=== PATIENT | male | born 1950 | race Two or more races ===

== ENCOUNTER 2019-01-20 15:58 | Outpatient (AMB) | payer MEDICARE, MEDICAID, SELFPAY ==
[2019-01-20 16:27] VITALS: BP 153/84; PULSE 67; RESP 18; TEMP 37.2; O2SAT 96; BMI 28.0
--- NOTE | 2019-01-20 16:27 | UCVISIT ---
Intake Ht./Wt. Decline/Exclusions Patient Declined Height and Weight this visit: No PT Meets exclusion criteria: Yes Vital Signs 01/20/19 16:27 Height 5 ft 10 in Height Method Measured Weight 88.536 kg Weight Measurement Method Standing Scale BMI 28.0 Temp 98.9 F Temp Source Temporal Artery Scan Pulse 67 Pulse Source Monitor Respiration 18 BP 153/84 H Blood Pressure Source Automatic Cuff Blood Pressure Location Right Upper Arm Position Sitting Pulse Oximetry (%) 96 Oxygen Delivery Method Room Air Intake Visit Reasons: UC Cough Triage Triage Allergy / Med Rec Allergies NKA* Allergy (Uncoded 07/28/16 22:48) Band Placement: Patient Identification NELIDA: [id number] Arrival Mode of Arrival: Private Vehicle Method of Arrival: Ambulatory Accompanied By: Self Prehospital Treatment: NONE PCP or OBGYN visit in last 3 months: Yes Language Preferred Language: Chinese Senior Research Manager Required: No Social History Alcohol / Drugs Hx Alcohol Use: No Hx Substance Use: No Safety Do You Feel Safe at Home: Yes Authorities Contacted: N/A Gallardo Fall Scale Special Populations Patient Comatose, Paralyzed or Immobile: No Patient Under the Age of 44 Years Old: No Assessment History of falling; immediate or within 3 months: No Secondary diagnosis: No Ambulatory aid: None IV Infusion: No Gait/Transferring: Normal/bedrest/immobile Mental Status: Oriented to own ability Score Score: 0 Risk Level/Action Risk Level: Low Risk Action: Good Basic Nursing Care Fall Star Level 1 Fall Star Level 1: Yes Patient Education Topic Education Topics: Discharge Instructions Teaching Recipient: Patient Readiness, Motivation to Learn: Active Methods: Verbal instruction Educ Materials Suggested by INFO Button/Rx Monograph Given: No Response: Verbalize Understanding Senior Research Manager Required: No [facility] Hx Congestive Heart Failure: No Hx Diabetes Mellitus Type 1: No Hx Diabetes Mellitus Type 2: No Hx Renal Disease: No Hx Chronic Obstructive Pulmonary Disease (COPD): No Past Medical History Reviewed and agree with Nursing documentation.: Yes Past Medical History History Provided By: Patient Past Medical History: No Cardiac Medical History Hx Congestive Heart Failure: No Endocrine Medical History Hx Diabetes Mellitus Type 1: No Hx Diabetes Mellitus Type 2: No Genitourinary Medical History Hx Renal Disease: No Respiratory Medical History Hx COPD: No HPI Cough Patient here for sinus congestion of body aches and chills and feeling feverish since yesterday. Pulmonary Results: No Data to Display Review of Systems (UC) Review of Systems All systems reviewed & no additional complaints except as documented Const Constitutional: Reports body ache, Reports chills and Reports fever(s) ENT Ears. Nose, Mouth, and Throat: Reports as per HPI Card Cardiovascular: Denies chest pain, Denies chest pain at rest and Denies lightheadedness Resp Respiratory: Reports as per HPI Skin/Breast Skin/Breast: Denies dry skin, Denies itching and Denies rash Exam () Limitations: no limitations General Appearance: alert, in no apparent distress, comfortable, cooperative, healthy appearing, well developed and well groomed ENT exam: Present normal exam, normal external ear exam, TM's normal bilaterally, normal oropharynx and mucous membranes moist SPO2%: 96% Respiratory exam: Present normal lung sounds bilaterally, normal respiratory effort, able to speak in complete sentences and clear to ascultation bilaterally Cardiovascular exam: Present regular rate and regular rhythm Abdominal Exam: Present non-tender, non-distended, normal bowel sounds and soft Extremities exam: normal inspection Back exam: Present normal inspection Neurological Exam: Present alert, awake and oriented X3 Psychiatric exam: Present normal affect and normal mood Skin exam: Present warm, dry, intact and normal color Office Procedures Level of Care Nursing/Assessment/Reassessment Patient Status: Established Patient Nursing Assessment/Reassessment: Triage Asessment, Initial Vital Signs and RN General Assessments Coordination of Care: DC Instructions Simple, Lab/Imaging Orders and Specimen Collection Established Patient Charge Established Patient Point Assignment: 65 Established Patient Point Assignment: EP Level 2 (40-75) Procedures: Pulse Ox reading: Yes Influenza A&B: Yes Rapid Influenza Bedside Test Rapid Flu: Negative Assessment and Plan Assessment & Plan (1) Cough: (2) Viral syndrome: Plan - Tim Prado(URGENT CARE), DIRECTOR TRAFFIC AND PLANNING: Take Motrin and Tylenol for body aches or fevers. Plan Details Other Orders: Orders: Rapid Influenza Today Instructions: ED Viral Syndrome Additional Information PA/MANUFACTURING PROJECT MANAGER Supervising Physician: Yobany Reyes DC Evaluation Discharge Information Seen, Treated and Released by Provider: No Left Prior to Receiving Discharge Instructions: No Transfer to Outside Facility: No Vital Signs Vitals Signs N/A: Yes Medication Medication Given this Visit: No Reaction to Medication: No Discharge Information Condition on Discharge: Stable Mode of Discharge: Ambulatory Discharge Transportation: Private Vehicle Instructions Senior Research Manager Required: No Was Follow up Care Ordered: Yes Verbalizes Understanding of Discharge Instructions: Yes Patient plan follow up w/PCP for [employer] [facility]: No
== END 2019-01-20 16:56 | disposition home or self-care (01) ==
PROVIDERS: PCP Registered Nurse; Referring Provider Registered Nurse; Visit Provider Nurse Practitioner Family

== ENCOUNTER → 2024-12-24 | Outpatient (CLI) | payer MEDICARE, MEDICAID, SELFPAY ==
--- NOTE | 2024-12-24 10:30 | XR_ITS ---
EXAM: Barium esophagram INDICATION: Dysphagia. Dose: 138.63 mGy Fluoroscopy time:1.6 min DATE: 12/24/2024, 11:12 a.m. PROCEDURE: Single contrast barium esophagram performed in multiple positions and projections. Contrast passes normally from the oropharynx through the esophagus into the stomach without evidence of delay. No evidence of esophageal mass, stricture, obstruction or diverticulum. No evidence of filling defects. No evidence of hiatal hernia. Gastroesophageal reflux not seen during the exam. IMPRESSION: Normal single contrast barium esophagram as above.
== END | disposition home or self-care (01) ==
LOC: SDIM 10:20
PROVIDERS: PCP Physician Assistant; Referring Provider Physician Assistant; Visit Provider Physician Assistant
DX: R49.0 Dysphonia (principal); K21.9 Gastro-esophageal reflux disease without esophagitis
CPT/HCPCS: 74220; A4649